=== PATIENT | female | born 1980 | race Caucasian/White ===

== ENCOUNTER → 2018-06-30 00:13 | Outpatient (CLI) | payer SELFPAY ==
--- NOTE | 2018-06-30 08:01 | DI.REPORT_ITS ---
SYMPTOM/DIAGNOSIS: RLQ PAIN, ACUTE PAIN R10.31 PELVIC ULTRASOUND: Transabdominal and transvaginal examination was performed. No priors for comparison. The uterus measures 8.9 cm long x 4 cm AP x 5.2 cm transverse. The endometrial stripe is within normal limits at 0.7 cm . No suspicious uterine masses are present. The right ovary measures 2.8 x 2 x 2.9 cm. The left ovary measures 3 x 1.7 x 3 cm. Small follicular cysts area seen bilaterally. There is normal blood flow to the ovaries. No evidence of torsion is seen. No free pelvic fluid or hydronephrosis is identified. IMPRESSION: Negative pelvic ultrasound.
== END ==
PROVIDERS: Visit Provider Obstetrics & Gynecology
DX: R10.31 Right lower quadrant pain (principal); N83.01 Follicular cyst of right ovary; N83.02 Follicular cyst of left ovary
CPT/HCPCS: 76830; 76856

== ENCOUNTER 2018-11-09 12:41 | Emergency (ER) | payer MEDICAID, SELFPAY ==
[2018-11-09 12:47] VITALS: BP 138/82; PULSE 95; RESP 16; TEMP 37; O2SAT 99
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
[2018-11-09] MEDS: Bacitracin 30 GM TUBE (13:14)
== END 2018-11-09 13:10 | disposition home or self-care (01) ==
PROVIDERS: Emergency Provider Emergency Medicine
DX: T22.212A Burn of second degree of left forearm, initial encounter (principal); T22.222A Burn of second degree of left elbow, initial encounter; J44.9 Chronic obstructive pulmonary disease, unspecified
CPT/HCPCS: 16020

== ENCOUNTER 2019-01-09 13:33 | Emergency (ER) | payer MEDICAID, SELFPAY ==
[2019-01-09 13:57] VITALS: BP 149/74; PULSE 90; RESP 16; TEMP 36; O2SAT 100
--- NOTE | 2019-01-09 14:06 | DI.RAD_ITS ---
SYMPTOMS/DIAGNOSIS: WRIST PAIN S/P FALL ON LATERAL SIDE 1 YEAR AGO RIGHT WRIST: Four views. No priors. No bone or joint abnormalities identified. IMPRESSION: No acute abnormality.
[2019-01-09] MEDS: Ibuprofen 600 MG TAB PO (14:20)
--- NOTE | 2019-01-09 15:32 | DI.VRAD_ITS ---
EXAM: XR Right Wrist Complete, 3 or more Views EXAM DATE/TIME: 01/09/2019 2:07 PM CLINICAL HISTORY: 38 years old, female; Signs and symptoms; Other: Wrist pain TECHNIQUE: XR Right wrist 3 or more views. COMPARISON: No relevant prior studies available. FINDINGS: The bony structures are in anatomic alignment. No fracture is present. No radiopaque foreign body is identified. The joint spaces are well maintained. IMPRESSION: Negative exam. Dictated and Authenticated by: Onel Guzman MD. Ordering:OSEI Gardner MD
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
--- NOTE | 2019-01-09 16:35 | NUR.NOTE ---
Nursing Note: Went to bring discharge paperwork to pt and pt had eloped. notified
--- NOTE | 2019-01-09 18:36 | NUR.NOTE ---
Nursing Note: Patient left prior to receiving discharge instructions. Discharge instructions and prescription are mailed to the patient. Ana Milton.
== END 2019-01-09 16:25 | disposition home or self-care (01) ==
PROVIDERS: Emergency Provider Nurse Practitioner Family; PCP Nurse Practitioner Adult Health
DX: M65.831 Other synovitis and tenosynovitis, right forearm (principal); M25.531 Pain in right wrist
CPT/HCPCS: 99283; 73110; 99282

== ENCOUNTER 2019-02-05 20:15 | Emergency (ER) | payer MEDICAID, SELFPAY ==
[2019-02-05] VITALS (10 sets, daily range): BP systolic 134–145; BP diastolic 81–87; PULSE 83–114; RESP 10–18; TEMP 36.7; O2SAT 99–100
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
--- NOTE | 2019-02-05 20:45 | DI.CT_ITS ---
SYMPTOM/DIAGNOSIS: LT SIDED CHEST PAIN PE CHEST CT: CT scan of the chest was performed according to the pulmonary embolus protocol. There is no evidence of a pulmonary embolus. The thoracic aorta is intact. No evidence of thoracic aneurysm or dissection. Heart size is within normal limits. No significant pericardial effusion is seen. No findings to suggest right ventricular dysfunction. No evidence of thoracic adenopathy, effusion or pneumothorax is present. There are emphysematous changes within the lungs. No acute focal consolidating infiltrates are seen to suggest pneumonia. The tracheobronchial tree is unremarkable. Areas of atelectasis are seen in the lungs. The bones show no acute abnormality. Upper abdominal images are unremarkable except for a calcified granuloma in the spleen which is of no clinical significance. IMPRESSION: No evidence of a pulmonary embolus, acute thoracic aortic dissection or aneurysm.
[2019-02-05 20:51] LABS: Abs Immature Grans 0.01 k/cumm (0.0-0.09); Absolute Basophil Count 0.09 k/cumm (0.0-0.2); Absolute Eosinophil Count 0.49 k/cumm (0.0-0.7); Absolute Lymphocyte Count 3.18 k/cumm (1.2-3.4); Absolute Monocyte Count 0.84 k/cumm (0.11-0.7); Absolute Neutrophil Count 4.38 k/cumm (1.2-6.7); Eosinophils % 5.5; HCT 41.4 % (36.0-46.0); HGB 13.6 g/dL (12.0-15.5); Immature Grans % 0.1; Lymphocytes % 35.4; Mean Corp. HGB Concentration 32.9 g/dL (32.0-36.0); Mean Corpuscular Hemoglobin 32.9 pg (27.0-33.0); Mean Platelet Volume 9.8 fL (8.0-11.0); Monocytes % 9.3; Neutrophils % 48.7; Platelet Count 261 x1000/uL (130-400); RBC 4.14 m/cumm (4.00-5.20); RBC Distribution Width 12.5 % (11.7-14.6); White Blood Cell Count 8.99 k/cumm (4.4-10.8)
[2019-02-05 21:04] LABS: ALT 13 U/L (12-78); AST 16 U/L (15-37); Albumin 3.9 g/dL (3.4-5.0); Alkaline Phosphatase 76 U/L (46-116); BUN 24 mg/dL (7-18); Bilirubin, Direct 0.09 mg/dL (0.00-0.20); Bilirubin, Total 0.2 mg/dL (0.2-1.0); CREATININE 0.65 mg/dL (0.55-1.02); Calcium 8.9 mg/dL (8.5-10.1); Chloride 101 mmol/L (98-107); Glucose 101 mg/dL (70-100); Lipase 107 U/L (73-393); Potassium 3.4 mmol/L (3.5-5.1); Sodium 137 mmol/L (136-145); Total Protein 7.6 g/dL (6.4-8.2)
[2019-02-05] MEDS: Omnipaque 350 MG/ML 100 ML BTL IJ (21:08)
--- NOTE | 2019-02-05 21:22 | DI.VRAD_ITS ---
EXAM: CT Angiography Chest With Contrast EXAM DATE/TIME: 02/05/2019 8:45 PM CLINICAL HISTORY: 38 years old, female; Pain; Chest pain; Left-sided chest pain TECHNIQUE: Axial computed tomographic angiography images of the chest with intravenous contrast using CT angiography protocol. Coronal and sagittal reformatted images were created and reviewed. MIP reconstructed images were created and reviewed. COMPARISON: No relevant prior studies available. FINDINGS: Pulmonary arteries: Normal. No pulmonary emboli. Aorta: Normal. No aortic aneurysm. No aortic dissection. Lungs: There are mild paraseptal emphysematous changes at the lung apices. Lungs otherwise clear. Pleural space: Normal. No pneumothorax. No pleural effusion. Heart: Normal. No cardiomegaly. No pericardial effusion. Spleen: Calcified granulomas noted in the spleen of no clinical concern. Lungs are otherwise unremarkable. Lymph nodes: Unremarkable. No enlarged lymph nodes. Bones/joints: Unremarkable. No acute fracture. Soft tissues: Unremarkable. IMPRESSION: 1. Negative for acute thoracic pathology. 2. Incidental findings as detailed above. Dictated and Authenticated by: Edward Crowe MD. Ordering:NINFA Zamarripa MD
[2019-02-05 21:26] LABS: Troponin I < 0.02 ng/mL (0.00-0.06)
[2019-02-05 21:36] LABS: PTT Activated 26.7 sec (21.0-31.4); Prothrombin Time 9.8 sec (9.3-11.0)
== END 2019-02-05 21:46 | disposition home or self-care (01) ==
PROVIDERS: Emergency Provider Emergency Medicine; PCP Nurse Practitioner Adult Health
DX: R07.9 Chest pain, unspecified (principal); J44.9 Chronic obstructive pulmonary disease, unspecified; F17.210 Nicotine dependence, cigarettes, uncomplicated
CPT/HCPCS: 36415; 71275; 80053; 80076; 83690; 93005; 99285; 83735; 84484; 85025; 85610; 85730; 93010; J3490

== ENCOUNTER 2019-07-22 14:34 | Outpatient (REF) | payer MEDICAID, SELFPAY ==
[2019-07-22 15:23] LABS: TSH (W/Ref FT4) 1.49 uIU/mL (0.36-3.74)
[2019-07-22 15:24] LABS: HCG Quant, Pregnancy < 1 mIU/mL (1-3)
== END 2019-07-22 14:54 ==
LOC: LBN 14:34
PROVIDERS: PCP Nurse Practitioner Adult Health; Visit Provider Nurse Practitioner Adult Health
DX: F32.9 Major depressive disorder, single episode, unspecified (principal); F41.9 Anxiety disorder, unspecified; G47.9 Sleep disorder, unspecified; R68.89 Other general symptoms and signs; N64.3 Galactorrhea not associated with childbirth
CPT/HCPCS: 84443; 84702

== ENCOUNTER 2019-09-02 11:46 | Outpatient (CLI) | payer MEDICAID, SELFPAY ==
[2019-09-02 13:24] LABS: HCG Quant, Pregnancy < 1 mIU/mL (1-3)
== END 2019-09-02 12:06 ==
PROVIDERS: PCP Nurse Practitioner Adult Health; Visit Provider Nurse Practitioner Adult Health
DX: N64.3 Galactorrhea not associated with childbirth (principal)
CPT/HCPCS: 36415; 84702

== ENCOUNTER 2019-09-26 02:16 | Outpatient (CLI) | payer MEDICAID, SELFPAY ==
--- NOTE | 2019-09-27 10:35 | PDOC.EEG_ITS ---
Neurology EEG EEG: [facility] Department of Neurology LONG-TERM AMBULATORY EEG REPORT Date of Recordin09/26/19 at 14:30:40 to 09/26/19 at 05:56:10 Interpreting Physician: Dr. Kayleigh Mcfarlane PCP/Referring Provider: Amy Cardoza NP Reason for study: Ms. Michel is a 39 year-old woman with a history of focal epilepsy with daily nocturnal events that could represent seizure vs other pathology. Current Medications: Home Medications Medication Instructions Recorded Confirmed Type albuterol sulfate 90 mcg/actuation 2 puff IH Q4H PRN #8.5 gm 01/03/19 09/23/19 Rx aerosol inhaler ibuprofen [IBU] 600 mg PO QID PRN #14 tab 01/09/19 09/23/19 Rx melatonin 10 mg capsule 10 mg PO HS PRN #90 cap 01/14/19 09/23/19 Rx mirtazapine 15 mg tablet 15 mg PO QHS #90 tab 04/18/19 09/23/19 Rx cyclobenzaprine 5 mg tablet 5 mg PO BID PRN #30 tab 09/02/19 09/23/19 Rx famotidine 20 mg tablet 20 mg PO QD-BID #60 tab 09/02/19 09/23/19 Rx lamotrigine 100 mg tablet 100 mg PO DAILY #30 tab 09/14/19 09/23/19 Rx METHODS: An 18-channel digitized electroencephalogram was recorded in the ambulatory setting with video. The 10/20 international system of electrode placement was used and bipolar and referential electrode montages were recorded. In addition to EEG the patient was monitored for EKG and by video. Activation procedures of photic stimulation and hyperventilation were performed if applicable. The duration of the recording was ~15.5 hours. DESCRIPTION OF EEG: Waking background activity: During maximal wakefulness a 10-Hz posterior background rhythm was present which was well-modulated, symmetrical, reactive to eye opening, and of moderate voltage. Faster frequencies were present in the b ilateral anterior head regions. There was a normal anterior-posterior voltage gradient. Drowsy and sleeping background activity: During drowsiness, there was attenuation of the posterior dominant background rhythm and vertex waves. Normal stage II and III sleep was present with symmetrical sleep spindles, K- complexes, and vertex waves with slowing of the background rhythm to delta/theta frequencies. REM sleep manifested by rapid lateral eye movements and faster background rhythms was recorded. Arousal was unremarkable. Interictal abnormalities: She had rare, bilateral, left > right, moderate- amplitude, frontal spike-wave discharges, primarily during wakefulness (F3>C3 and F4>C4). She had frequent 1 second bursts of sharply-contoured, generalized, moderate-amplitude theta/alpha throughout the recording. Ictal findings: Event #1 on 09/26/19 at 17:13:32 -Clinical manifestations: No events reported. Video was not utilized. -EEG findings: No abnormal EEG patterns. Event #2 on 09/26/19 at 18:28:11 -Clinical manifestations: No events reported. Video was not utilized. -EEG findings: No abnormal EEG patterns. Event #3 on 09/26/19 at 19:47:35 -Clinical manifestations: No events reported. Video was not utilized. -EEG findings: No abnormal EEG patterns. Event #4 on 09/26/19 at 22:31:20 -Clinical manifestations: No events reported. Video was not utilized. -EEG findings: No abnormal EEG patterns. Event #5 on 09/27/19 at 05:15:15 -Clinical manifestations: No events reported. Video was not utilized. -EEG findings: No abnormal EEG patterns. Activating Procedures: Photic stimulation was performed which produced a symmetrical posterior driving response at various flash frequencies. Hyperventilation was performed with moderate effort and produced no physiological slowing of the background. EKG: EKG revealed normal sinus rhythm. INTERPRETATION: This long-term EEG is abnormal due to rare, bilateral, left > right, moderate- amplitude, frontal spike-wave discharges. 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 No seizures were captured. Clinical correlation is advised. Kayleigh Mcfarlane MD
== END 2019-09-26 02:36 ==
PROVIDERS: PCP Nurse Practitioner Adult Health; Visit Provider Psychiatry & Neurology Neurology
DX: G40.109 Localization-related (focal) (partial) symptomatic epilepsy and epileptic syndromes with simple partial seizures, not intractable, without status epilepticus (principal); R94.01 Abnormal electroencephalogram [EEG]
CPT/HCPCS: 95953

== ENCOUNTER 2021-09-04 08:40 | Emergency (ER) | payer MEDICAID, SELFPAY ==
[2021-09-04 08:45] VITALS: BP 138/73; PULSE 94; RESP 16; TEMP 36.2; O2SAT 100
--- NOTE | 2021-09-04 08:45 | DI.RAD_ITS ---
Exam(s) XR HAND RT COMPLETE EXAM: XR HAND RT COMPLETE CLINICAL HISTORY: hand/thumb injury. TECHNIQUE: 2D digital imaging was performed of the right hand. Three images were obtained. AP, late ral and oblique views were obtained. COMPARISON: No exams were available for comparison FINDINGS: BONES: No acute fracture is present. No bony destructive lesion is seen. JOINTS: No dislocation present. SOFT TISSUE: Normal. IMPRESSION: Unremarkable radiographs of the right hand. DATA REPOSITORY: RADIATION DOSE DELIVERED:
--- NOTE | 2021-09-04 08:45 | DI.RAD_ITS ---
Exam(s) XR WRIST RT COMPLETE EXAM: XR WRIST RT COMPLETE CLINICAL HISTORY: fall/pain. Please get scaphoid view. TECHNIQUE: 2D digital imaging was performed of the right wrist. Three views were obtained. PA, lat eral and oblique views were obtained. COMPARISON: No exams were available for comparison FINDINGS: BONES: No acute fracture is present. No bony destructive lesion is seen. JOINTS: The carpal bones are normally aligned. SOFT TISSUE: Normal. IMPRESSION: Unremarkable radiographs of the right wrist. DATA REPOSITORY: RADIATION DOSE DELIVERED:
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
== END 2021-09-04 10:10 | disposition home or self-care (01) ==
PROVIDERS: Emergency Provider Physician Assistant; PCP Nurse Practitioner Adult Health
DX: M79.644 Pain in right finger(s) (principal); M79.641 Pain in right hand; W18.39XA Other fall on same level, initial encounter
CPT/HCPCS: 99284; 73110; 73130; 99283

== ENCOUNTER 2022-03-07 02:37 | Outpatient (CLI) | payer MEDICAID, SELFPAY | END 2022-03-07 02:38 | disposition home or self-care (01) | LOC: LBO 02:37 | PROVIDERS: PCP Nurse Practitioner Adult Health; Visit Provider Nurse Practitioner Adult Health ==

== ENCOUNTER 2022-03-12 03:15 | Outpatient (CLI) | payer MEDICAID, SELFPAY | END 2022-03-12 03:16 | disposition home or self-care (01) | LOC: LBO 03:16 | PROVIDERS: PCP Nurse Practitioner Adult Health ==

== ENCOUNTER → 2022-05-07 03:05 | Outpatient (CLI) | payer MEDICAID, SELFPAY | PROVIDERS: PCP Nurse Practitioner Adult Health; Visit Provider Nurse Practitioner Adult Health ==

== ENCOUNTER 2022-12-10 18:21 | Outpatient (REF) | payer MEDICAID, SELFPAY ==
--- NOTE | 2022-12-10 17:30 | PAPFT_PTH ---
PATIENT: Surekha Michel LOC: [facility] U#:[id number] AGE/SX: 42/F ROOM: RE12/10/[address]: Amy Ramesh APRN : 1980 BED: DIS: 12/10/2022 SPEC #: [id number] RECD: 12/11/22 12:42 STATUS: JOSÉ MIGUEL REQ #: [id number] MADAI: 12/10/22 17:[address]: Amy Ramesh DEPT: [facility] Cytology RECD BY: Laney Barber Tissues: 1 - CX/ENDOCX FOR PAP SMEARS Procedures: PAP THIN PREP/UVM Screening HPV DNA PROBE Comments: [id number]
[2022-12-12 13:33] LABS: Chlamydia Result Negative (Negative); GC Result Negative (Negative)
== END 2022-12-10 18:22 | disposition home or self-care (01) ==
LOC: LBN 18:21
PROVIDERS: PCP Nurse Practitioner Adult Health; Visit Provider Nurse Practitioner Adult Health
DX: Z12.4 Encounter for screening for malignant neoplasm of cervix; Z11.3 Encounter for screening for infections with a predominantly sexual mode of transmission; N93.0 Postcoital and contact bleeding; Z11.51 Encounter for screening for human papillomavirus (HPV); R87.810 Cervical high risk human papillomavirus (HPV) DNA test positive
CPT/HCPCS: 87491; 87591; 88142; 87480; 87510; 87624; 87660

== ENCOUNTER 2023-12-28 12:31 | Outpatient (REF) | payer MEDICAID, SELFPAY ==
--- NOTE | 2023-12-28 11:45 | PAPFT_PTH ---
PATIENT: Surekha Michel LOC: [facility] U#:[id number] AGE/SX: 43/F ROOM: RE12/28/[address]: Amy Ramesh APRN : 1980 BED: DIS: 12/28/2023 SPEC #: [id number] RECD: 12/28/23 18:29 STATUS: JOSÉ MIGUEL REFahad #: [id number] MADAI: 12/28/23 11:[address]: Amy Ramesh DEPT: [facility] Cytology RECD BY: Laney Barber Tissues: 1 - CX/ENDOCX FOR PAP SMEARS Procedures: PAP THIN PREP/UVM Screening HPV DNA PROBE Comments: [id number]
[2023-12-29 13:18] LABS: Chlamydia Result Negative (Negative); GC Result Negative (Negative)
== END 2023-12-28 12:32 | disposition home or self-care (01) ==
LOC: LBN 12:31
PROVIDERS: PCP Nurse Practitioner Adult Health; Referring Provider Nurse Practitioner Adult Health; Visit Provider Nurse Practitioner Adult Health
DX: Z11.3 Encounter for screening for infections with a predominantly sexual mode of transmission (principal); Z72.52 High risk homosexual behavior
CPT/HCPCS: 87491; 87591; 88142; 87480; 87510; 87624; 87660

== ENCOUNTER 2025-09-08 03:21 | Outpatient (CLI) | payer MEDICAID, SELFPAY ==
--- NOTE | 2025-09-08 07:00 | DI.MAMMO_ITS ---
Exam(s) MAMMO SCREENING EXAM: MAMMO SCREENING CLINICAL HISTORY: screening,z12.39 TECHNIQUE: Mammograms were interpreted according to the usual protocol including computer analysis with CAD system, tomosynthesis and C-view imaging. COMPARISON: No exams were available for comparison. Baseline examination. FINDINGS: The breasts are composed of scattered fibroglandular densities, Breast Density category B. No suspicious masses or suspicious microcalcifications are seen. No skin thickening or abnormal axillary lymph nodes are seen. There has been no significant change from prior exams. IMPRESSION: BI-RADS Category 1, Negative mammogram Yearly screening mammography is recommended. Breast Density - Category B - There are scattered areas of fibroglandular density. Breast density Category C or D implies that the patient has dense breast tissue. Dense breast tissue can make it harder to find cancer on a mammogram. Dense breast tissue is also associated with an increased risk of breast cancer. This information about the result of the mammogram report was provided to the patient to raise their awareness. Use this report when you speak with the patient about their risks for breast cancer, which includes their family history. At that time, you may recommend additional screening tests (Ultrasound or MRI) as these tests may add significant information. A negative radiographic report should not delay biopsy if a dominant or clinically suspicious mass is present. Up to ten percent of cancers are not identified on mammography. A negative report may reinforce clinical impression. Adenosis and dense breasts may obscure an underlying neoplasm. False positive reports average 6 to 10%. Patient will receive a letter notifying them of these results.
== END 2025-09-08 03:41 ==
LOC: DI 03:21
PROVIDERS: PCP Nurse Practitioner Adult Health; Visit Provider Nurse Practitioner Adult Health
DX: Z12.31 Encounter for screening mammogram for malignant neoplasm of breast (principal)
CPT/HCPCS: 77063; 77067